=== PATIENT | male | born 1980 | race Caucasian/White ===

== ENCOUNTER 2022-06-05 03:35 | Observation (INO) ==
[2022-06-05] MEDS ORDERED: Iopamidol - 370 500 ML MLS IVP ONE (04:33)
[2022-06-05] MEDS ORDERED: Ondansetron 4 MG/2 ML VIAL IVP STA (04:34)
[2022-06-05] MEDS ORDERED: Morphine Sulfate 2 MG/ML SYRINGE IVP ONE (04:34)
[2022-06-05] MEDS ORDERED: 0.9 % Sodium Chloride 1,000 ML IV ONE ×2 (04:34→07:18)
[2022-06-05 05:00] LABS: Basophils % 0.4 %; Eosinophils # 0.2 K/mcL (0.0-0.6); Hematocrit 45.2 % (37.5-50.1); Hemoglobin 14.8 g/dL (12.9-16.9); Immature Granulocytes % 0.2 % (0-4); Lymphocytes # 3.7 K/mcL (0.6-4.6); Lymphocytes % 37.5 %; Mean Corpuscular HGB Conc 32.7 g/dL (31.6-35.5); Mean Corpuscular Hemoglobin 28.8 pg (28.0-33.3); Mean Corpuscular Volume 87.9 fL (83.0-100.0); Mean Platelet Volume 10.6 fL (9.4-12.4); Monocytes # 0.6 K/mcL (0.0-1.3); Monocytes % 6.4 %; Neutrophils # 5.3 K/mcL (1.6-8.9); Platelet Count 289 K/mcL (140-400); Red Blood Count 5.14 M/mcL (4.19-5.50); Red Cell Distribution Width 13.2 % (11.5-14.5); Segmented Neutrophils % 53.5 %; White Blood Count 9.8 K/mcL (4.3-11.1)
[2022-06-05 05:03] LABS: Bilirubin,Urine Negative (Negative); Blood,Urine Negative (Negative); Clarity,Urine Clear (Clear); Color,Urine Light-Yellow (Yellow); Glucose,Urine (UA) Normal (Normal); Ketones,Urine Negative (Negative); Leukocyte Esterase,Urine Negative (Negative); Nitrite,Urine Negative (Negative); PH,Urine 5.5 pH Units (5.0-8.0); Protein,Urine Negative (Neg-Trace); Specific Gravity,Urine 1.022 (1.010-1.025); Urobilinogen,Urine Normal (Normal)
[2022-06-05 05:20] LABS: Alanine Aminotransferase 17 Units/L (7-52); Albumin 4.6 g/dL (3.5-5.7); Albumin/Globulin Ratio 1.5 (1.1-2.2); Alkaline Phosphatase 50 Units/L (34-104); Aspartate Amino Transferase 18 Units/L (13-39); BUN/Creatinine Ratio 15 (6-26); Bilirubin,Indirect 0.3 mg/dL (0.0-1.0); Bilirubin,Total 0.3 mg/dL (0.3-1.0); Blood Urea Nitrogen 20 mg/dL (6-20); Calcium 9.8 mg/dL (8.6-10.3); Carbon Dioxide 28 mEq/L (23-29); Chloride 101 mEq/L (98-107); Ethanol < 10 mg/dL (Less than 10); Glucose 106 mg/dL (70-105); Lipase 18 Units/L (11-82); Osmolality,Calculated 287 (280-300); Sodium 137 mEq/L (136-145); Total Protein 7.6 g/dL (6.4-8.9); eGFR For African Americans > 60 (> 60); eGFR For Non-African Americans 58 (> 60)
[2022-06-05] MEDS ORDERED: cefOXitin 2,000 MG in 0.9 % Sodium Chloride Mini Bag 100 ML IVPB ONE (07:25)
[2022-06-05] MEDS ORDERED: Acetaminophen IV 1,000 MG/100 ML BAG IVPB STA (07:56)
[2022-06-05] MEDS ORDERED: Ringers Solution, Lactated 1,000 ML IVC SCH (08:00)
[2022-06-05] MEDS ORDERED: *HR* FentaNYL (PF) 100 MCG/2 ML VIAL ONE (08:18)
[2022-06-05] MEDS ORDERED: *HR* Propofol 200 MG/20 ML VIAL IVP ONE ×2 (08:18→09:49)
[2022-06-05] MEDS ORDERED: *HR* Midazolam HCl 2 MG/2 ML VIAL ONE (08:18)
[2022-06-05] MEDS ORDERED: Ondansetron 4 MG/2 ML VIAL ONE (08:19)
[2022-06-05] MEDS ORDERED: *HR* Succinylcholine 200 MG/10 ML VIAL IVP ONE (08:19)
[2022-06-05] MEDS ORDERED: Lidocaine -MPF 2% 5 ML VIAL ONE (08:19)
[2022-06-05] MEDS ORDERED: Lidocaine HCL 4 ML Topical Solution (Laryng-O-Jet Kit Sterile Pak) TP ONE (08:19)
[2022-06-05] MEDS ORDERED: *HR* Rocuronium Bromide 50 MG/5 ML VIAL ONE (08:19)
[2022-06-05] MEDS ORDERED: Famotidine 20 MG/2 ML VIAL IVP ONE (08:22)
[2022-06-05 08:41] LABS: Influenza A PCR Negative (Negative); Influenza B PCR Negative (Negative); Resp. Syncytial Virus PCR Negative (Negative)
[2022-06-05 08:42] LABS: SARS-CoV-2 by PCR (In House) Negative (Negative)
[2022-06-05] MEDS ORDERED: CefOXitin 1,000 MG VIAL ONE (08:48)
[2022-06-05] MEDS ORDERED: Iopamidol - 300 50 ML VIAL ONE (08:49)
[2022-06-05] MEDS ORDERED: CefOXitin 2,000 MG VIAL ONE (09:25)
[2022-06-05] MEDS ORDERED: *HR* HYDROMORPHONE 2 MG/ML VIAL ONE (09:46)
[2022-06-05] MEDS ORDERED: Acetaminophen IV 1,000 MG/100 ML BAG IVPB ONE (10:02)
[2022-06-05] MEDS ORDERED: Sugammadex Sodium 200 MG/2 ML VIAL IV ONE (10:18)
[2022-06-05] MEDS ORDERED: Ondansetron 4 MG/2 ML VIAL IVP PRN (11:15)
[2022-06-05] MEDS: Ringers Solution, Lactated 1,000 ML IVC SCH ×2 (11:47→18:19)
[2022-06-05] MEDS: cefOXitin 2,000 MG in 0.9 % Sodium Chloride Mini Bag 100 ML IVPB SCH (14:41)
[2022-06-05] MEDS: *HR* OxyCODONE/APAP 10/325 TABLET PO PRN ×2 (14:41→20:06)
[2022-06-06] MEDS: cefOXitin 2,000 MG in 0.9 % Sodium Chloride Mini Bag 100 ML IVPB SCH ×2 (00:29→08:04)
[2022-06-06] MEDS: *HR* OxyCODONE/APAP 10/325 TABLET PO PRN ×2 (00:35→06:05)
[2022-06-06] MEDS: Ringers Solution, Lactated 1,000 ML IVC SCH ×2 (02:53→10:19)
[2022-06-06] MEDS ORDERED: Ibuprofen 800 MG TABLET PO STA (06:47)
[2022-06-06 06:52] LABS: BUN/Creatinine Ratio 7 (6-26); Blood Urea Nitrogen 10 mg/dL (6-20); Calcium 9.2 mg/dL (8.6-10.3); Carbon Dioxide 28 mEq/L (23-29); Chloride 103 mEq/L (98-107); Glucose 115 mg/dL (70-105); Osmolality,Calculated 290 (280-300); Potassium 4.2 mEq/L (3.5-5.1); Sodium 140 mEq/L (136-145); eGFR For African Americans > 60 (> 60); eGFR For Non-African Americans 59 (> 60)
[2022-06-06 07:26] VITALS: BP 122/83; PULSE 73; TEMP 98.2; O2SAT 98
[2022-06-06] MEDS ORDERED: Acetaminophen 325 MG TABLET PO SCH (12:00)
== END 2022-06-06 10:56 | disposition home or self-care (01) ==
LOC: 3BNU 03:35 → EMEROOARM 03:35 → 3BNU 09:08
PROVIDERS: ADMIT Surgery; ATTEND Surgery